=== PATIENT | female | born 1970 | race Caucasian/White ===

== ENCOUNTER 2017-06-08 15:56 | Emergency (ER) | payer MEDICAID ==
[~2017-06-08] VITALS: Ht 175.3 cm; Wt 113.4 kg
[2017-06-08 15:58] VITALS: BP 126/80
== END 2017-06-09 01:15 | disposition left against medical advice (07) ==
LOC: EDBD 15:56 → ER 15:56
DX: R56.9 Unspecified convulsions (principal); Z53.21 Procedure and treatment not carried out due to patient leaving prior to being seen by health care provider
CPT/HCPCS: 70450; 80053

== ENCOUNTER 2017-11-15 17:05 | Inpatient (IN) | payer MEDICAID ==
[~2017-11-15] VITALS: Ht 170.2 cm; Wt 124.3 kg
[2017-11-15] MEDS ORDERED: ASPirin 81 mg TAB PO ONE (17:30)
[2017-11-15 17:49] LABS: Basophils # (auto) 0 uL; Basophils % (auto) 0.6 % (0.0-2.0); Eosinophils # (auto) 0.1 uL; Hematocrit 41.9 % (36.0-46.0); Lymphocytes # (auto) 0.8 uL; Lymphocytes % (auto) 10.7 % (10.0-50.0); Mean Corpuscular Hemoglobin 29.7 pg (28.0-32.0); Mean Corpuscular Hgb Conc. 33.4 g/dL (32.0-36.0); Mean Corpuscular Volume 88.8 fL (80.0-100.0); Monocytes # (auto) 0.5 uL; Monocytes % (auto) 7.6 % (0.0-12.0); Neutrophils # (auto) 5.6 uL; Neutrophils % (auto) 80.1 % (37.0-80.0); Platelet Count (auto) 181 10^3/uL (140-450); Red Blood Cells 4.72 10^6/uL (4.0-5.20)
[2017-11-15 18:07] LABS: Alanine Aminotransferase 23 U/L (13-56); Albumin 3.4 g/dL (3.4-5.0); Anion Gap 10 (5-15); Aspartate Aminotransferase 19 U/L (15-37); Blood Urea Nitrogen 7 mg/dL (7-18); Calcium 8.4 mg/dL (8.5-10.1); Carbon Dioxide 22 mmol/L (21-32); Chloride 110 mmol/L (98-107); GFR African American 91 mL/min; GFR Non-African American 75 mL/min; Glucose 102 mg/dL (74-106); Magnesium 2.2 mg/dL (1.6-2.6); Potassium 3.5 mmol/L (3.5-5.1); Sodium 142 mmol/L (136-145)
[2017-11-15 18:11] LABS: Alkaline Phosphatase 112 U/L (45-117); Bilirubin, Total 0.4 mg/dL (0.2-1.0)
[2017-11-15 18:14] LABS: Prothrombin Time 10.7 sec (9.27-12.13)
[2017-11-15] MEDS ORDERED: MORPHINE SULF INJ 2 MG/ML SYRINGE 1ML IV ONE (19:15)
[2017-11-15] MEDS ORDERED: PROMETHAZINE HCL 25 MG/ML 1ML IV ONE (19:15)
[2017-11-15] MEDS ORDERED: IOHEXOL 350 MG/ML 100ML IJ ONE (19:40)
[2017-11-15] MEDS ORDERED: ENOXAPARIN SOD 120 MG/0.8 ML SYRINGE SC ONE (21:00)
[2017-11-15] MEDS ORDERED: MORPHINE SULF INJ 2 MG/ML SYRINGE 1ML IV PRN (21:15)
[2017-11-15] MEDS ORDERED: ACETAMINOPHEN 325 MG TAB PO PRN (21:15)
[2017-11-15] MEDS ORDERED: DOCUSATE SOD 100 MG CAP PO PRN (21:15)
[2017-11-15] MEDS ORDERED: NITROGLYCERIN 0.4 MG SL TAB SL PRN (21:15)
[2017-11-15] MEDS ORDERED: TEMAZEPAM 15 MG CAP PO PRN (21:15)
[2017-11-15] MEDS ORDERED: ONDANSETRON HCL 4 MG/2 ML VIAL IV PRN (21:15)
[2017-11-15] MEDS: FAMOTIDINE 20 MG TAB PO SCH (21:52)
[2017-11-15] MEDS: ENOXAPARIN SOD 120 MG/0.8 ML SYRINGE SC SCH (21:52)
[2017-11-15] MEDS: TOPIRAMATE 100 MG TAB PO SCH (21:53)
[2017-11-15] MEDS: LISINOPRIL 20 MG TAB PO SCH ×2 (21:53→22:00)
[2017-11-15] MEDS: SODIUM CHLORIDE 0.9% 1,000 ML IV SCH (22:51)
[2017-11-15] MEDS: HYDROcodone-ACET 5/325MG TAB PO PRN (22:51)
[2017-11-15] MEDS ORDERED: OME20T PO (23:00)
[2017-11-15] MEDS ORDERED: METO-158 PO (23:00)
[2017-11-15] MEDS ORDERED: LISI-646 PO (23:00)
[2017-11-15] MEDS ORDERED: CLOB10TA PO ×2 (23:00)
[2017-11-15] MEDS ORDERED: RUFI400T PO (23:00)
[2017-11-15] MEDS ORDERED: TOPI1CAP24 OR (23:00)
[2017-11-15] MEDS ORDERED: MIRT15TA3 PO (23:00)
[2017-11-15] MEDS ORDERED: LORA1TAB12 PO (23:00)
[2017-11-15 23:04] VITALS: BP 112/64
[2017-11-16] VITALS (7 sets, daily range): BP systolic 116–150; BP diastolic 66–79
[2017-11-16] MEDS: HYDROcodone-ACET 5/325MG TAB PO PRN ×4 (05:23→21:46)
[2017-11-16 05:49] LABS: Basophils # (auto) 0 uL; Basophils % (auto) 0.4 % (0.0-2.0); Eosinophils # (auto) 0 uL; Eosinophils % (auto) 0.6 % (0.0-7.0); Hematocrit 38.3 % (36.0-46.0); Hemoglobin 12.6 g/dL (12.2-16.2); Lymphocytes # (auto) 0.9 uL; Mean Corpuscular Hemoglobin 29.3 pg (28.0-32.0); Monocytes # (auto) 0.7 uL; Monocytes % (auto) 10.3 % (0.0-12.0); Neutrophils # (auto) 4.8 uL; Neutrophils % (auto) 74.7 % (37.0-80.0); Platelet Count (auto) 150 10^3/uL (140-450); Red Blood Cells 4.31 10^6/uL (4.0-5.20); Red Cell Distribution Width 14.8 % (11.8-14.3); White Blood Cell 6.4 10^3/uL (4.4-10.8)
[2017-11-16 06:17] LABS: Albumin 2.8 g/dL (3.4-5.0); Calcium 7.9 mg/dL (8.5-10.1); Potassium 3.4 mmol/L (3.5-5.1)
[2017-11-16 06:19] LABS: BUN/Creatinine Ratio 12.5
[2017-11-16 06:22] LABS: Bilirubin, Total 0.5 mg/dL (0.2-1.0); Total Protein 6.9 g/dL (6.4-8.2)
[2017-11-16] MEDS: FAMOTIDINE 20 MG TAB PO SCH ×2 (09:34→21:45)
[2017-11-16] MEDS: TOPIRAMATE 100 MG TAB PO SCH ×2 (09:35→21:45)
[2017-11-16] MEDS: SODIUM CHLORIDE 0.9% 1,000 ML IV SCH (09:36)
[2017-11-16] MEDS: ENOXAPARIN SOD 120 MG/0.8 ML SYRINGE SC SCH (09:36)
[2017-11-16] MEDS ORDERED: METOPROLOL TARTRATE 50 MG TAB PO SCH (10:00)
[2017-11-16] MEDS ORDERED: POTASSIUM CHL 20 Meq TABLET PO ONE (12:15)
[2017-11-16] MEDS: APIXABAN 5 MG TAB PO SCH (21:44)
[2017-11-16] MEDS: LISINOPRIL 20 MG TAB PO SCH (21:46)
[2017-11-17] MEDS: SODIUM CHLORIDE 0.9% 1,000 ML IV SCH ×2 (00:39→14:23)
[2017-11-17] MEDS: HYDROcodone-ACET 5/325MG TAB PO PRN ×5 (01:30→20:09)
[2017-11-17 05:00] VITALS: BP 116/69
[2017-11-17 06:26] LABS: Basophils # (auto) 0 uL; Basophils % (auto) 0.4 % (0.0-2.0); Eosinophils # (auto) 0.1 uL; Eosinophils % (auto) 1.1 % (0.0-7.0); Hemoglobin 12.6 g/dL (12.2-16.2); Lymphocytes # (auto) 0.9 uL; Lymphocytes % (auto) 15.6 % (10.0-50.0); Mean Corpuscular Hgb Conc. 33.2 g/dL (32.0-36.0); Mean Corpuscular Volume 90.4 fL (80.0-100.0); Monocytes # (auto) 0.6 uL; Monocytes % (auto) 9.4 % (0.0-12.0); Neutrophils # (auto) 4.3 uL; Neutrophils % (auto) 73.5 % (37.0-80.0); Platelet Count (auto) 146 10^3/uL (140-450); Red Cell Distribution Width 14.5 % (11.8-14.3); White Blood Cell 5.9 10^3/uL (4.4-10.8)
[2017-11-17 06:41] LABS: BUN/Creatinine Ratio 9.9; Calcium 8.4 mg/dL (8.5-10.1); Potassium 4.2 mmol/L (3.5-5.1)
[2017-11-17 08:00] VITALS: BP 112/75
[2017-11-17] MEDS: APIXABAN 5 MG TAB PO SCH ×2 (09:28→21:40)
[2017-11-17] MEDS: TOPIRAMATE 100 MG TAB PO SCH ×2 (09:28→21:41)
[2017-11-17] MEDS: LISINOPRIL 20 MG TAB PO SCH (09:29)
[2017-11-17] MEDS: METOPROLOL TARTRATE 50 MG TAB PO SCH ×2 (09:30→21:41)
[2017-11-17] MEDS: FAMOTIDINE 20 MG TAB PO SCH ×2 (09:37→21:40)
[2017-11-17] MEDS ORDERED: ASPirin-EC 81 mg tab PO SCH (10:00)
[2017-11-17 12:00] VITALS: BP 115/72
[2017-11-17 16:00] VITALS: BP 117/69
[2017-11-17 21:30] VITALS: BP 116/74
[2017-11-18] MEDS: HYDROcodone-ACET 5/325MG TAB PO PRN ×4 (00:44→18:00)
[2017-11-18] MEDS: SODIUM CHLORIDE 0.9% 1,000 ML IV SCH ×3 (02:34→21:12)
[2017-11-18 05:00] VITALS: BP 117/70
[2017-11-18 05:58] LABS: Basophils # (auto) 0 uL; Basophils % (auto) 0.5 % (0.0-2.0); Eosinophils # (auto) 0.1 uL; Eosinophils % (auto) 2.6 % (0.0-7.0); Hematocrit 34.7 % (36.0-46.0); Hemoglobin 11.5 g/dL (12.2-16.2); Lymphocytes # (auto) 0.9 uL; Lymphocytes % (auto) 16.7 % (10.0-50.0); Mean Corpuscular Hemoglobin 29.4 pg (28.0-32.0); Monocytes # (auto) 0.6 uL; Monocytes % (auto) 11.5 % (0.0-12.0); Neutrophils # (auto) 3.5 uL; Neutrophils % (auto) 68.7 % (37.0-80.0); Nucleated Red Blood Cells % 0.1 %; Platelet Count (auto) 144 10^3/uL (140-450); Red Cell Distribution Width 14.6 % (11.8-14.3); White Blood Cell 5.2 10^3/uL (4.4-10.8)
[2017-11-18 06:40] LABS: Potassium 3.9 mmol/L (3.5-5.1)
[2017-11-18 06:50] LABS: BUN/Creatinine Ratio 8.2
[2017-11-18 09:05] VITALS: BP 109/66
[2017-11-18] MEDS: APIXABAN 5 MG TAB PO SCH ×2 (10:02→21:09)
[2017-11-18] MEDS: FAMOTIDINE 20 MG TAB PO SCH ×2 (10:02→21:11)
[2017-11-18] MEDS: LISINOPRIL 20 MG TAB PO SCH (10:03)
[2017-11-18] MEDS: TOPIRAMATE 100 MG TAB PO SCH ×2 (10:03→21:12)
[2017-11-18] MEDS: METOPROLOL TARTRATE 50 MG TAB PO SCH ×2 (10:04→21:12)
[2017-11-18 13:00] VITALS: BP 128/70
[2017-11-18 17:00] VITALS: BP 115/62
[2017-11-18 21:36] VITALS: BP 131/67
[2017-11-19] MEDS: HYDROcodone-ACET 5/325MG TAB PO PRN ×2 (00:05→05:31)
[2017-11-19 05:00] VITALS: BP 103/65
[2017-11-19 05:42] LABS: Basophils # (auto) 0 uL; Basophils % (auto) 0.5 % (0.0-2.0); Eosinophils # (auto) 0.1 uL; Eosinophils % (auto) 3.3 % (0.0-7.0); Hematocrit 33.8 % (36.0-46.0); Hemoglobin 11.1 g/dL (12.2-16.2); Lymphocytes % (auto) 21.1 % (10.0-50.0); Mean Corpuscular Hemoglobin 29.3 pg (28.0-32.0); Mean Corpuscular Hgb Conc. 32.8 g/dL (32.0-36.0); Mean Corpuscular Volume 89.4 fL (80.0-100.0); Monocytes # (auto) 0.5 uL; Monocytes % (auto) 10.8 % (0.0-12.0); Neutrophils # (auto) 2.9 uL; Neutrophils % (auto) 64.3 % (37.0-80.0); Nucleated Red Blood Cells % 0.1 %; Platelet Count (auto) 166 10^3/uL (140-450); Red Blood Cells 3.78 10^6/uL (4.0-5.20); Red Cell Distribution Width 14.6 % (11.8-14.3); White Blood Cell 4.6 10^3/uL (4.4-10.8)
[2017-11-19 06:05] LABS: BUN/Creatinine Ratio 7.6; Calcium 8.1 mg/dL (8.5-10.1); Potassium 3.5 mmol/L (3.5-5.1)
[2017-11-19] MEDS ORDERED: LEVOFLOXACIN 500 MG TAB PO ONE (06:45)
[2017-11-19 09:00] VITALS: BP 130/54
[2017-11-19] MEDS: APIXABAN 5 MG TAB PO SCH (10:01)
[2017-11-19] MEDS: FAMOTIDINE 20 MG TAB PO SCH (10:01)
[2017-11-19] MEDS: LISINOPRIL 20 MG TAB PO SCH (10:02)
[2017-11-19] MEDS: TOPIRAMATE 100 MG TAB PO SCH (10:02)
[2017-11-19] MEDS: METOPROLOL TARTRATE 50 MG TAB PO SCH (10:03)
[2017-11-23] MEDS ORDERED: APIXABAN 5 MG TAB PO SCH (22:00)
== END 2017-11-19 11:45 | disposition home or self-care (01) | DRG 134 ==
LOC: EDBD 17:05 → ER 17:05 → TELE-WESTW 17:06
PROVIDERS: ADMIT Nurse Practitioner; ATTEND Internal Medicine
DX: I26.99 Other pulmonary embolism without acute cor pulmonale (principal); E44.0 Moderate protein-calorie malnutrition; Z68.41 Body mass index [BMI] 40.0-44.9, adult; F17.200 Nicotine dependence, unspecified, uncomplicated; E87.6 Hypokalemia; G40.909 Epilepsy, unspecified, not intractable, without status epilepticus; I10 Essential (primary) hypertension; E66.9 Obesity, unspecified; J45.909 Unspecified asthma, uncomplicated; Z88.6 Allergy status to analgesic agent; I25.2 Old myocardial infarction; Z88.0 Allergy status to penicillin; Z88.8 Allergy status to other drugs, medicaments and biological substances; Z82.49 Family history of ischemic heart disease and other diseases of the circulatory system; Z90.710 Acquired absence of both cervix and uterus
CPT/HCPCS: 36415; 71045; 71275; 80048; 80053; 81241; 83090; 83605; 83735; 83880; 84443; 84484; 85025; 85302; 85305; 85306; 85379; 85610; 85613; 85670; 85705; 85730; 85732; 87040; 93005; 93306; 93970; 94761; 96361; 96374; 96375; J2405

== ENCOUNTER 2017-11-29 22:55 | Emergency (ER) | payer MEDICAID ==
[~2017-11-29] VITALS: Ht 170.2 cm; Wt 117.9 kg
[~2017-11-29 22:55] MED LIST: CLOB10TA PO; LORA1TAB12 PO; MIRT15TA3 PO; OME20T PO; RUFI400T PO; TOPI1CAP24 OR
[2017-11-30] MEDS ORDERED: IOHEXOL 350 MG/ML 100ML IJ ONE (04:31)
[2017-11-30 05:03] LABS: Basophils # (auto) 0.1 uL; Basophils % (auto) 1.1 % (0.0-2.0); Eosinophils # (auto) 0.1 uL; Eosinophils % (auto) 1.5 % (0.0-7.0); Hematocrit 40.6 % (36.0-46.0); Lymphocytes # (auto) 1.5 uL; Lymphocytes % (auto) 25.8 % (10.0-50.0); Mean Corpuscular Hemoglobin 28.2 pg (28.0-32.0); Mean Corpuscular Volume 88.3 fL (80.0-100.0); Monocytes # (auto) 0.3 uL; Monocytes % (auto) 5.6 % (0.0-12.0); Neutrophils # (auto) 3.7 uL; Platelet Count (auto) 250 10^3/uL (140-450); Red Blood Cells 4.59 10^6/uL (4.0-5.20); Red Cell Distribution Width 14.6 % (11.8-14.3); White Blood Cell 5.6 10^3/uL (4.4-10.8)
[2017-11-30 05:06] LABS: Urine Bacteria FEW /hpf (None Seen); Urine Blood Negative /uL (Negative); Urine Mucus FEW (None Seen); Urine Specific Gravity 1.015 (1.001-1.035); Urine WBC 2 /hpf (0 - 5)
[2017-11-30 05:15] LABS: Prothrombin Time 10.7 sec (9.27-12.13)
[2017-11-30 05:22] LABS: Albumin 3.5 g/dL (3.4-5.0); Anion Gap 9 (5-15); Blood Urea Nitrogen 14 mg/dL (7-18); Calcium 8.8 mg/dL (8.5-10.1); Carbon Dioxide 25 mmol/L (21-32); Chloride 108 mmol/L (98-107); Glucose 87 mg/dL (74-106); Potassium 3.7 mmol/L (3.5-5.1); Sodium 142 mmol/L (136-145)
[2017-11-30 05:24] LABS: BUN/Creatinine Ratio 15.7; GFR African American 88 mL/min; GFR Non-African American 73 mL/min
[2017-11-30 05:30] LABS: Alanine Aminotransferase 21 U/L (13-56); Alkaline Phosphatase 93 U/L (45-117); Aspartate Aminotransferase 11 U/L (15-37); Bilirubin, Total 0.2 mg/dL (0.2-1.0); Total Protein 8.1 g/dL (6.4-8.2)
[2017-11-30] MEDS ORDERED: cefTRIAXone 1GM/10ml IVPUSH 10 ML IV ONE (07:00)
[2017-11-30 07:49] VITALS: BP 99/56
== END 2017-11-30 09:32 | disposition home or self-care (01) ==
LOC: EDBD 22:55 → ER 23:01
DX: J18.9 Pneumonia, unspecified organism (principal); J45.909 Unspecified asthma, uncomplicated; I25.10 Atherosclerotic heart disease of native coronary artery without angina pectoris; E78.5 Hyperlipidemia, unspecified; I10 Essential (primary) hypertension; I25.2 Old myocardial infarction; F17.210 Nicotine dependence, cigarettes, uncomplicated; Z88.8 Allergy status to other drugs, medicaments and biological substances; Z90.710 Acquired absence of both cervix and uterus; Z88.0 Allergy status to penicillin; Z79.899 Other long term (current) drug therapy; Z86.711 Personal history of pulmonary embolism
CPT/HCPCS: 36415; 70450; 71275; 80053; 81001; 84484; 85025; 85610; 87040; 93005; 96374; 99285; J0696; Q9967

== ENCOUNTER 2022-05-03 17:28 | Emergency (ER) | payer MEDICAID, OTHER ==
[~2022-05-03] VITALS: Ht 170.2 cm; Wt 113.9 kg
[~2022-05-03 17:28] MED LIST changes: -LORA1TAB12 PO; +LORA1TAB23 PO; -MIRT15TA3 PO; +MIRT1TAB38 PO
[2022-05-03] MEDS ORDERED: TOPIRAMATE 100 MG TAB PO ONE ×2 (20:45→21:15)
[2022-05-03 20:47] LABS: Basophils # (auto) 0 10 ^3/uL (0-0.2); Eosinophils # (auto) 0.1 10 ^3/uL (0-0.8); Eosinophils % (auto) 1.1 % (0.0-7.0); Hemoglobin 11.3 g/dL (12.2-16.2); Lymphocytes # (auto) 1.4 10 ^3/uL (0.4-5.4); Mean Corpuscular Hemoglobin 26.4 pg (28.0-32.0); Mean Corpuscular Hgb Conc. 31.3 g/dL (32.0-36.0); Monocytes # (auto) 0.4 10 ^3/uL (0-1.3)
[2022-05-03 20:49] VITALS: BP 133/87
[2022-05-03 20:49] LABS: Basophils % (auto) 0.5 % (0.0-2.0); Lymphocytes % (auto) 22.4 % (10.0-50.0); Mean Corpuscular Volume 84.6 fL (80.0-100.0); Monocytes % (auto) 6.5 % (0.0-12.0); Neutrophils # (auto) 4.3 10 ^3/uL (1.6-8.6); Neutrophils % (auto) 69.5 % (37.0-80.0); Nucleated Red Blood Cells % 0.2 %; Red Blood Cells 4.26 10^6/uL (4.0-5.20); Red Cell Distribution Width 15.5 % (11.8-14.3); White Blood Cell 6.2 10^3/uL (4.4-10.8)
[2022-05-03] MEDS ORDERED: TOPI1CAP24 PO (20:53)
[2022-05-03] MEDS ORDERED: METO25TA5 PO (20:53)
[2022-05-03] MEDS ORDERED: LISI-710 PO (20:53)
[2022-05-03] MEDS ORDERED: APIX5TAB PO (20:53)
[2022-05-03] MEDS ORDERED: RUFI400T2 PO (20:53)
[2022-05-03] MEDS ORDERED: CLOB10TA2 PO (20:59)
[2022-05-03 21:00] LABS: Albumin 3.5 g/dL (3.4-5.0); BUN/Creatinine Ratio 18.9; Calcium 8.9 mg/dL (8.5-10.1); Potassium 3.8 mmol/L (3.5-5.1)
[2022-05-03 21:01] LABS: INR 1.03 (0.9-1.15); Partial Thromboplastin Time 20.9 sec (24.6-33.4)
[2022-05-03 21:02] LABS: Bilirubin, Total 0.3 mg/dL (0.2-1.0); Total Protein 7.2 g/dL (6.4-8.2)
== END 2022-05-04 00:14 | disposition home or self-care (01) ==
LOC: ER 17:28
DX: I10 Essential (primary) hypertension (principal); I25.10 Atherosclerotic heart disease of native coronary artery without angina pectoris; I25.2 Old myocardial infarction; E78.5 Hyperlipidemia, unspecified; J45.909 Unspecified asthma, uncomplicated; F17.210 Nicotine dependence, cigarettes, uncomplicated; Z86.69 Personal history of other diseases of the nervous system and sense organs; Z86.711 Personal history of pulmonary embolism; Z76.0 Encounter for issue of repeat prescription; Z90.710 Acquired absence of both cervix and uterus; Z79.899 Other long term (current) drug therapy; Z88.0 Allergy status to penicillin; Z88.8 Allergy status to other drugs, medicaments and biological substances; Z88.6 Allergy status to analgesic agent
CPT/HCPCS: 36415; 80053; 85025; 85610; 85730